=== PATIENT | female | born 1955 | race African-American/Black ===

== ENCOUNTER → 2019-12-16 | Outpatient (CLI) | payer OTHER ==
[~2019-12-16] MED LIST: BENICAR40 MG; BENICAR40 MG PO; MECLIZINE HCL25 M1 PO; ULTRAM 50MG TAB50 MG PO; XANAX 0.5 MG0.5 M1; ZOFRAN4 MG PO
== END ==
LOC: RAD 07:57
PROVIDERS: ATTEND Internal Medicine
DX: M47.816 Spondylosis without myelopathy or radiculopathy, lumbar region (principal); M25.78 Osteophyte, vertebrae; M48.061 Spinal stenosis, lumbar region without neurogenic claudication